=== PATIENT | male | born 1960 | race Caucasian/White ===

== ENCOUNTER 2020-06-03 09:42 | Outpatient (CLI) | payer BC ==
[2020-06-03 10:33] LABS: BASOPHILS % (AUTO) 0.4 % (0-1); EOSINOPHILS # (AUTO) 0.1 X10'3 (0-0.9); EOSINOPHILS % (AUTO) 2.1 % (0-6); HEMOGLOBIN 15.1 g/dl (14.0-17.9); LYMPHOCYTES # (AUTO) 0.7 X10'3 (1.1-4.8); MEAN CORPUSCULAR HEMOGLOBIN 32.5 PG (27.0-31.0); MEAN CORPUSCULAR HGB CONC 34.4 g/dL (33.0-36.5); MEAN CORPUSCULAR VOLUME 94.5 FL (78-98); MEAN PLATELET VOLUME 9.4 FL (7.4-10.4); MONOCYTES # (AUTO) 0.4 X10'3 (0-0.9); MONOCYTES % (AUTO) 10.5 % (2-12); NEUTROPHILS # (AUTO) 2.4 X10'3 (1.8-7.7); PLATELET COUNT 158 X10'3 (140-440); RED BLOOD COUNT 4.66 X10'6 (4.70-6.10); RED CELL DISTRIBUTION WIDTH 12.5 % (11.5-14.5); WHITE BLOOD COUNT 3.6 X10'3 (4.5-11.0)
[2020-06-03 10:47] LABS: PARTIAL THROMBOPLASTIN TIME 25 SECONDS (22-32)
[2020-06-03 10:48] LABS: ALANINE AMINOTRANSFERASE 24 U/L (12-78); ALBUMIN/GLOBULIN RATIO 0.9 (1.1-1.5); ALKALINE PHOSPHATASE 59 IU/L (46-116); ANION GAP 8 (8-16); ASPARTATE AMINO TRANSFERASE 25 U/L (10-37); BILIRUBIN,TOTAL 0.5 MG/DL (0.1-1.0); BLOOD UREA NITROGEN 15 MG/DL (7-18); BUN/CREATININE RATIO 18.3 (5.4-32.0); CALCIUM 8.9 MG/DL (8.5-10.1); CHLORIDE 106 MMOL/L (99-107); CHOL/HDL RATIO 2.8 (0.00-4.99); CHOLESTEROL 144 MG/DL (0-200); CREATININE 0.82 MG/DL (0.60-1.10); GLUCOSE 88 MG/DL (70-104); HDL CHOLESTEROL 52 MG/DL (35-60); LDL CHOLESTEROL 82 MG/DL (50-100); SODIUM 142 MMOL/L (135-145); TOTAL CARBON DIOXIDE 27.9 MMOL/L (24-32); TOTAL PROTEIN 8.6 G/DL (6.4-8.2); TRIGLYCERIDES 64 MG/DL (20-135); eGFR > 90 ML/MIN
[2020-06-04] MEDS ORDERED: NITR0.4T51 SL (10:12)
[2020-06-04] MEDS ORDERED: OMEG-79 PO (10:12)
[2020-06-04] MEDS ORDERED: RED600TA PO (10:12)
[2020-06-04] MEDS ORDERED: UBID200C18 PO (10:12)
[2020-06-04] MEDS ORDERED: CLOP75TA15 PO (10:12)
[2020-06-04] MEDS ORDERED: SIMV-42 PO (10:12)
[2020-06-04] MEDS ORDERED: METO25TA6 PO (10:12)
[2020-06-04] MEDS ORDERED: ASPI-1265 PO (10:12)
== END 2020-06-03 23:59 | disposition home or self-care (01) ==
LOC: LAB 09:42
PROVIDERS: ATTEND Internal Medicine Cardiovascular Disease
DX: I25.10 Atherosclerotic heart disease of native coronary artery without angina pectoris (principal); R06.02 Shortness of breath; R53.83 Other fatigue
CPT/HCPCS: 36415; 80053; 80061; 85025; 85610; 85730

== ENCOUNTER 2020-06-04 09:14 | Day surgery (SDC) | payer BC ==
[~2020-06-04] VITALS: Ht 177.8 cm; Wt 69.4 kg
[2020-06-04] VITALS (12 sets, daily range): BP systolic 105–142; BP diastolic 59–79
[2020-06-04] MEDS ORDERED: normal saline 1,000 ML IV SCH ×2 (09:35→14:10)
[2020-06-04] MEDS ORDERED: LORazepam 0.5 MG tablet PO PRN (09:35)
[2020-06-04] MEDS ORDERED: diphenhydrAMINE 25mg capsule PO PRN (09:35)
[2020-06-04] MEDS ORDERED: LIDOcaine/PRILOcaine 5gm cream TP ONE (09:40)
[2020-06-04] MEDS ORDERED: ASPI-1265 PO (10:12)
[2020-06-04] MEDS ORDERED: CLOP75TA15 PO (10:12)
[2020-06-04] MEDS ORDERED: SIMV-42 PO (10:12)
[2020-06-04] MEDS ORDERED: RED600TA PO (10:12)
[2020-06-04] MEDS ORDERED: METO25TA6 PO (10:12)
[2020-06-04] MEDS ORDERED: NITR0.4T51 SL (10:12)
[2020-06-04] MEDS ORDERED: OMEG-79 PO (10:12)
[2020-06-04] MEDS ORDERED: UBID200C18 PO (10:12)
[2020-06-04] MEDS ORDERED: verapamil 2.5 mg/ml inj IV ONE (11:44)
[2020-06-04] MEDS ORDERED: nitroGLYCERIN-Tridil 50MG/D5W 250 ML IV ONE (11:45)
[2020-06-04] MEDS ORDERED: fentaNYL/PF 50MCG/1 ML 2ML syringe ONE (11:45)
[2020-06-04] MEDS ORDERED: iohexol 350 MG/1 ML 200ml bottle ONE (11:45)
[2020-06-04] MEDS ORDERED: iohexol 350 MG/ML 50ML vial IV ONE (11:45)
[2020-06-04] MEDS ORDERED: heparin 1,000unit/ml 10ml vial 10 ML ONE (11:45)
[2020-06-04] MEDS ORDERED: midazolam 2 mg/2 ml injection ONE ×2 (11:45→13:06)
[2020-06-04] MEDS ORDERED: LIDOcaine 1% (10mg/ml)w/preservative injection 20ml MDV ONE (11:45)
[2020-06-04] MEDS ORDERED: heparin 25,000 UNIT/250ml bag 250 ML IV ONE (13:03)
[2020-06-04] MEDS ORDERED: clopidogrel 300mg tablet ONE (13:16)
--- NOTE | 2020-06-04 18:53 | NUR ---
Telephoned Dr. Pradhan re clarification of new Crestor order and continuation of Zocor. stated to discontinue Zocor and start Crestor.
== END 2020-06-04 19:15 | disposition home or self-care (01) ==
LOC: SSTAY O 09:14
PROVIDERS: ATTEND Internal Medicine Cardiovascular Disease
DX: R94.39 Abnormal result of other cardiovascular function study (principal); I25.10 Atherosclerotic heart disease of native coronary artery without angina pectoris; E78.5 Hyperlipidemia, unspecified; I10 Essential (primary) hypertension; I25.2 Old myocardial infarction; Z95.5 Presence of coronary angioplasty implant and graft; Z79.899 Other long term (current) drug therapy; Z79.82 Long term (current) use of aspirin; Z79.01 Long term (current) use of anticoagulants; Z72.89 Other problems related to lifestyle; Z82.49 Family history of ischemic heart disease and other diseases of the circulatory system
CPT/HCPCS: 76937; 93005; 93458; 99152; 99153; C1725; C1751; C1760; C1769; C1874; C1894; C9600; J1644; J2001; J2250; J3010; J7030; Q0163; Q9967; A4620; A5120; A6258; J3490